=== PATIENT | male | born 1980 | race Caucasian/White ===

== ENCOUNTER 2020-11-30 15:46 | Emergency (ER) | payer OTHER, MEDICAID ==
[2020-11-30] MEDS ORDERED: Ketorolac 15 MG/ML SDV IM ONE (17:28)
--- NOTE | 2020-11-30 18:53 | CR ---
Indication: Dislocation one month ago Technique: Three-views the right knee Comparison: No comparison Findings: Normal alignment. Anterior soft tissue swelling. No acute fractures seen. Patella Rose. Dictated by Ana Bowser MD @ 11/30/2020 6:51:55 PM (Electronically Signed)
--- NOTE | 2020-11-30 19:13 | EDM.PDOC ---
ED HPI GENERAL MEDICAL PROBLEM - General Chief Complaint: Lower Extremity Injury/Pain Stated Complaint: RIGHT KNEE DISLOCATED 1 MONTH PRIOR, KNEE PAIN NOW Time Seen by Provider: 11/30/20 17:27 - History of Present Illness INITIAL COMMENTS - FREE TEXT/NARRATIVE: CHIEF COMPLAINT(S): Knee pain HISTORY OF PRESENT ILLNESS: This is a 40-year-old man with a past medical history of patellar dislocation who comes to the emergency department with a chief complaint of an knee pain. The patient states that he is experiencing pain in his right knee. He states that he had a dislocation approximately 1 month ago and since that time it has been hurting. He denies any numbness, tingling or weakness. He states that his pain is 5 out of 10 when he sits still but 9 out of 10 when he starts walking. He describes the pain as throbbing and located on the anterior part of his right knee. He denies any swelling, bruising, redness, fever. He denies any IV drug use. He states that when it dislocates he just puts his kneecap back into place. He states that he has tried ibuprofen without any relief. He denies any relieving factors. REVIEW OF SYSTEMS: Constitutional: Denies fever, chills. Eyes: Denies eye pain Ears, Nose, Mouth, & Throat: Denies earache Cardiovascular: Denies chest pain Respiratory: Denies shortness of breath Gastrointestinal: Denies Nausea, vomiting, diarrhea, hematochezia. Genitourinary: Denies hematuria Skin:Denies a rash MSK: Positive for right knee pain. Denies swelling Neurological: Denies blurred vision, numbness, tingling, weakness Psychiatric: Denies depression PAST MEDICAL HISTORY: As per history of present illness and as reviewed below otherwise noncontributory. SURGICAL HISTORY: As per history of present illness and as reviewed below otherwise noncontributory. SOCIAL HISTORY: As per history of present illness and as reviewed below otherwise noncontributory. FAMILY HISTORY: As per history of present illness and as reviewed below otherwise noncontributory. EXAMINATION OF ORGAN SYSTEMS/BODY AREAS: Constitutional: Blood pressure 131/73, heart rate 66, respiratory rate 17 with an oxygen saturation 97% on room air. Temperature 36.6 General: Well-appearing man who is in no acute distress Psychiatric: Appropriate mood and affect. Eyes: No scleral icterus or conjunctival erythema Cardiovascular: Regular, rate, and rhythm. No gallops, murmurs, or rubs. Bilateral upper extremity and lower extremity pulses symmetric and intact. No peripheral edema. No JVD. Respiratory: Lungs clear to auscultation bilaterally. No wheezes, rales, or rhonchi. Gastrointestinal: Soft, non-tender, non-distended. Normoactive bowel sounds Genitourinary: No suprapubic tenderness Musculoskeletal: Normal range of motion of the right knee. Patient can fully extend at the right knee and flex. There is medial joint line tenderness. No obvious deformity or swelling. Negative varus and valgus. Skin: No lesions or abrasions. Neurological: Alert, GCS 15 distal sensation is intact MEDICAL DECISION MAKING AND COURSE IN THE ED WITH INTERPRETATION/REVIEW OF DIAGNOSTIC STUDIES: This is a 40-year-old man with a past medical history of patellar dislocation who comes to the emergency department with an right knee pain for the past 1 month who has medial joint line tenderness. We will provide the patient with Toradol for pain relief and obtain a knee x-ray for evaluation. The radiological images were viewed by myself along with reading the report from the radiologist. Right knee x-ray reveals normal alignment anterior soft tissue swelling no acute fractures with patella larry. On reevaluation I did confirm that the patient does have intact extension and there is no tenderness along the patellar tendon however given the x-ray findings and the patellar dislocation I did discuss placement of the patient in a knee immobilizer and follow-up with orthopedics. The patient was amenable to this plan. He was given symptomatic treatment at home. He is to return for any new or worsening symptoms. DISPOSITION: The patient was discharged home in stable condition. The patient will follow up with orthopedics in 5 to 7 days CONDITION: Fair PROCEDURES: None FINAL IMPRESSION(S)/DIAGNOSES: 1. Acute right knee pain, possible partial patellar tendon tear DME: Right knee immobilizer Indication: Patella larry Benefit: Immobilization Duration: Until follow-up with orthopedics DME: Crutches Indication: Patella larry Benefit: Nonweightbearing Duration: Until follow-up with orthopedics Mark Nieves M.D. Right Knee Pain Score (Numeric/FACES): 5 - Related Data Allergies Allergy/AdvReac Type Severity Reaction Status Date / Time No Known Allergies Allergy Verified 11/30/20 17:25 Home Meds: Home Meds . [No Known Home Meds] 09/22/13 [History] Past Medical History - Past Health History Medical/Surgical History: Denies Medical/Surgical History - Infectious Disease History Infectious Disease History: Reports: None Social & Family History - Family History Family Medical History: No Pertinent Family History - Tobacco Use Tobacco Use Status *Q: Never Tobacco User - Caffeine Use Caffeine Use: Reports: None - Recreational Drug Use Recreational Drug Use: No Review of Systems - Review of Systems Review Of Systems: See Below ED EXAM, GENERAL - Physical Exam Exam: See Below Course - Vital Signs Last Recorded V/S: Last Vital Signs Temp 36.6 C 11/30/20 17:25 Pulse 65 11/30/20 19:30 Resp 18 11/30/20 19:30 BP 128/79 11/30/20 19:30 Pulse Ox 97 11/30/20 19:30 - Orders/Labs/Meds Meds: Medications Discontinued Medications Generic Name Dose Route Start Last Admin Trade Name Freq PRN Reason Stop Dose Admin Ketorolac Tromethamine 15 mg 11/30/20 17:28 11/30/20 18:12 Ketorolac 15 Mg/Ml Sdv IM 11/30/20 17:29 15 mg ONETIME ONE Administration Departure - Departure Time of Disposition: 19:11 Disposition: Home, Self-Care 01 Condition: Fair Clinical Impression: Knee injury - Discharge Information *PRESCRIPTION DRUG MONITORING PROGRAM REVIEWED*: No *COPY OF PRESCRIPTION DRUG MONITORING REPORT IN PATIENT CHEMA: No Instructions: Crutch Use, Adult, [id number], Cast or Splint Care, Adult, [id number], Knee Sprain, Adult, [id number] Referrals: PCP,None [Primary Care Provider] - Forms: ED Department Discharge Additional Instructions: You were evaluated today on an emergent basis. At this time your x-ray did not reveal any evidence of any fractures. I recommend use Tylenol and Motrin for pain relief and keep your appointment with [facility]. We will place you in a knee immobilizer given the findings of patella larry on x-ray and given the patellar dislocation that you described. Please keep this in place until you follow-up with your appointment. Please use: Tylenol 500-1000mg every 6 hours (DO NOT TAKE MORE THAN 4000mg in 1 day) Ibuprofen 400mg every 6 hours (Take with food as it can cause ulcers, GI upset) Example schedule: 8:00 AM (Tylenol 500-1000mg) 11:00 AM (Ibuprofen 400mg) 2:00 PM (Tylenol 500-1000mg) 5:00 PM (Ibuprofen 400mg) In addition to Tylenol and Motrin you may use over the counter creams such as Voltaren Cream or Lidocaine Cream (Lidoderm) as needed 4 times a day for symptomatic relief. Ice the area 20 minutes 4 times per day The patient is informed of any results of their evaluation and diagnostic workup and all questions are answered. They are given discharge instructions and return precautions. The patient is stable for discharge. The patient states they understand and agree with the plan and that they will return if their symptoms get worse or if they have any new concerns. The following information is given to patients seen in the emergency department who are being discharged to home. This information is to outline your options for follow-up care. We provide all patients seen in our emergency department with a follow-up referral. The need for follow-up, as well as the timing and circumstances, are variable depending upon the specifics of your emergency department visit. If you don't have a primary care physician on staff, we will provide you with a referral. We always advise you to contact your personal physician following an emergency department visit to inform them of the circumstance of the visit and for follow-up with them and/or the need for any referrals to a consulting specialist. The emergency department will also refer you to a specialist when appropriate. This referral assures that you have the opportunity for follow-up care with a specialist. All of these measure are taken in an effort to provide you with optimal care, which includes your follow-up. Under all circumstances we always encourage you to contact your private physician who remains a resource for coordinating your care. When calling for follow-up care, please make the office aware that this follow-up is from your recent emergency room visit. If for any reason you are refused follow-up, please contact the [facility] Emergency Department at and asked to speak to the emergency department charge nurse. Sepsis Event Note (ED) - Evaluation Sepsis Screening Result: No Definite Risk
== END 2020-11-30 19:30 | disposition home or self-care (01) ==
LOC: MW.ED 15:46
DX: S89.91XA Unspecified injury of right lower leg, initial encounter (principal); X58.XXXA Exposure to other specified factors, initial encounter
CPT/HCPCS: 73562; 96372; 99283; J1885